=== PATIENT | male | born 1970 | race Caucasian/White ===

== ENCOUNTER 2023-12-21 15:24 | Emergency (ER) | payer OTHER, SELFPAY ==
--- NOTE | ~2023-12-21 | XR_ITS ---
XR chest 2V 12/21/2023 16:13 Indication: Productive cough for 2 weeks. Procedure: 2 view chest Comparison: No prior studies for comparison. Findings: Left lower lobe airspace disease, compatible with pneumonia. Bilateral pulmonary nodules, s uspicious for metastatic disease. No significant effusion. No pneumothorax. No acute osseous abnormal ity. Heart size normal. Prominent right hilum, suspicious for lymphadenopathy. Impression: 1: Left lower lobe pneumonia. 2: Bilateral pulmonary nodules, suspicious for metastatic disease. Possible right hilar lymphadenopat hy. Consider correlation with CT chest with contrast. Reviewed, dictated and finalized at location L. Impression: 1: Left lower lobe pneumonia. 2: Bilateral pulmonary nodules, suspicious for metastatic disease. Possible rig ht hilar lymphadenopathy. Consider correlation with CT chest with contrast.
[2023-12-21 15:34] VITALS: BP 118/66; PULSE 102; RESP 18; TEMP 36.8; O2SAT 98
--- NOTE | 2023-12-21 16:00 | ED.GENADULT ---
HPI - General Adult General Chief complaint: Upper Respiratory Infection Stated complaint: cough Time Seen by Provider: 12/21/23 16:00 Source: patient, RN notes reviewed and old records reviewed Mode of arrival: ambulatory Limitations: no limitations History of Present Illness HPI narrative: 53-year-old male to [facility] 3 weeks with clear phlegm. Patient endorses that he saw his primary care provider 1 week ago and was put on amoxicillin. Patient reports no improvement. Patient endorses history of epilepsy, high cholesterol, hypertension. Patient denies fever, chest pain. On exam patient unable to take deep breath during auscultation and went in to severe coughing episode. Patient was able to recover and continuing answering questions with full sentences. No acute distress. Patient able to tolerate fluids by mouth. Related Data Home Medications Medication Instructions Recorded Confirmed carbamazepine 200 mg 200 mg PO DAILY 12/21/23 12/21/23 capsule,extended release [id number] cyclobenzaprine 10 mg tablet 10 mg PO DAILY 12/21/23 12/21/23 gabapentin 300 mg capsule 300 mg PO DAILY 12/21/23 12/21/23 levetiracetam 500 mg tablet 500 mg PO DAILY 12/21/23 12/21/23 lovastatin 20 mg tablet 20 mg PO DAILY 12/21/23 12/21/23 promethazine-DM 6.25 mg-15 mg/5 mL See Rx Instructions .Route .COMPLEX 12/21/23 12/21/23 oral syrup propranolol 40 mg tablet 40 mg PO DAILY 12/21/23 12/21/23 tamsulosin 0.4 mg capsule 0.4 mg PO DAILY 12/21/23 12/21/23 valsartan 160 mg tablet mg 12/21/23 Allergies Allergy/AdvReac Type Severity Reaction Status Date / Time No Known Allergies Allergy Verified 12/21/23 16:54 Review of Systems Review of Systems: All systems reviewed & are unremarkable except as noted in HPI and below Constitutional: Constitutional: Reports as per HPI, Denies body ache(s), Denies chills, Denies fatigue and Denies fever(s) Eyes: Eyes: Reports no additional eye complaints ENT: Reports as per HPI, Denies otalgia and Denies sore throat Cardiovascular: Cardiovascular: Reports no additional cardiovascular complaints, Denies chest pain and Denies dyspnea Respiratory: Respiratory: Reports no additional respiratory complaints, Reports cough, Denies hemoptysis, Reports excessive phlegm production ( Clear phlegm per patient) and Denies dyspnea Musculoskeletal: Musculoskeletal: Reports no additional musculoskeletal complaints Neurologic: Reports system reviewed and no additional complaints, except as documented Psychiatric: Psychiatric: Reports no additional psychiatric complaints PMFSH Comments At the time of my signature, I reviewed and agree with the nursing past medical, surgical, social, and family history. There is no relevant family history pertinent to the patient complaint. Exam Const: General: cooperative, no acute distress, well developed, alert, anxious, tired appearing, uncomfortable and well nourished; No acute distress Nutritional Appearance: well nourished Orientation/consciousness: patient oriented x3 Limitations: no limitations HENMT: Head: normal to inspection Ears: external ears normal Face/Nose/Sinus: Normal external nose present, Normal nares present, normal facial exam, No erythema and No edema Face and sinus: normal facial exam, no erythema and no edema Mouth: Yes Normal oral and palatal mucosa present Eyes: General: appearance normal, both eyes and all related structures Neck: Neck: normal visual inspection, full ROM and no meningeal signs Lymphatic: no lymphadenopathy noted and no lymphedema noted Chest: Chest palpation & inspection: normal inspection of the chest Resp: Effort & Inspection: normal respiratory effort and able to speak in complete sentences Auscultation: rhonchi throughout (left posterior) and diminished lung sounds bilateral Cardio: Jugular venous distension: no JVD Rate: regular rate Rhythm: regular rhythm Back/Spine/Pelvis: Cervical Spine: cervica
== END 2023-12-21 17:00 | disposition home or self-care (01) ==
PROVIDERS: Emergency Provider Nurse Practitioner Family; PCP Internal Medicine
DX: J18.1 Lobar pneumonia, unspecified organism (principal); R05.1 Acute cough; G40.909 Epilepsy, unspecified, not intractable, without status epilepticus; I10 Essential (primary) hypertension; E78.00 Pure hypercholesterolemia, unspecified
CPT/HCPCS: 71046; 99213; G0463

== ENCOUNTER → 2024-01-01 13:58 | Outpatient (CLI) | payer OTHER, SELFPAY ==
--- NOTE | ~2024-01-01 | XR_ITS ---
XR chest 2V DATE: 01/01/2024 14:15 INDICATION: Pneumonia TECHNIQUE: 2 views COMPARISON: 12/21/2023 2 view chest FINDINGS: Bilateral multiple pulmonary masses are again suggested. Asymmetric soft tissue density in the right apical area; right apical infiltrate or mass lesion or sc arring are suggested. Infiltrate and/atelectasis is suggested in both lower lung zones. There is soft tissue prominence in the right suprahilar and azygos area suggesting hilar and mediasti nal lymphadenopathy. Normal heart size. Pulmonary vascularity is within normal range. IMPRESSION: Bilateral pulmonary masses are again noted, right suprahilar azygous prominence suggestin g adenopathy. CT thorax with IV contrast material is recommended bilateral lower lung infiltrate and/ atelectasis are suggested.. Reviewed, dictated and finalized at location A. IMPRESSION: Bilateral pulmonary masses are again noted, right suprahilar azygou s prominence suggesting adenopathy. CT thorax with IV contrast material is ridge mmended bilateral lower lung infiltrate and/atelectasis are suggested..
== END ==
PROVIDERS: PCP Internal Medicine; Visit Provider Internal Medicine
DX: R91.8 Other nonspecific abnormal finding of lung field (principal); J18.9 Pneumonia, unspecified organism
CPT/HCPCS: 71046